=== PATIENT | male | born 1955 | race Caucasian/White ===

== ENCOUNTER 2022-10-03 07:03 | Inpatient (IN) | payer MEDICAID, MEDICARE ==
[2022-10-03] MEDS ORDERED: Propofol 200 MG/20 ML SDV ONE (07:08)
[2022-10-03] MEDS ORDERED: fentaNYL 50 MCG/ML SDV ONE (07:08)
[2022-10-03] MEDS ORDERED: Midazolam 1 MG/ML 2 ML SDV ONE (07:08)
[2022-10-03] MEDS ORDERED: Lactated Ringers 1,000 ML IV SCH (07:30)
[2022-10-03] MEDS ORDERED: Ondansetron 4 MG/2 ML SDV IVPUSH ONE (10:01)
[2022-10-03] MEDS ORDERED: Dicyclomine 10 MG Cap PO ONE (10:59)
[2022-10-03] MEDS ORDERED: Ketorolac 15 MG/ML SDV IVPUSH ONE ×2 (11:52)
[2022-10-03] MEDS ORDERED: Ondansetron 4 MG/2 ML SDV IV PRN (12:33)
[2022-10-03] MEDS ORDERED: Ketorolac 15 MG/ML SDV IVPUSH PRN (12:33)
[2022-10-03] MEDS ORDERED: Piperacillin/Tazobactam/Dext 3.375 GM in Premix Bag 1 BAG IV ONE (13:00)
[2022-10-03] MEDS ORDERED: Acetaminophen 1,000 MG in Premix Bag 1 BAG IV PRN (13:06)
[2022-10-03] MEDS: Dextrose 5%-0.45% NaCl 1,000 ML IV SCH ×3 (13:08→22:45)
[2022-10-03 15:30] LABS: CORONAVIRUS COVID-19 NAA NEGATIVE (NEGATIVE)
[2022-10-03] MEDS ORDERED: LORazepam 2 MG/ML SDV IVPUSH PRN (16:58)
[2022-10-03] MEDS ORDERED: HYDROmorphone 0.5 MG/0.5 ML Syringe IVPUSH PRN (16:58)
[2022-10-03] MEDS: Piperacillin/Tazobactam/Dext 3.375 GM in Premix Bag 1 BAG IV SCH (17:36)
[2022-10-04] MEDS: Piperacillin/Tazobactam/Dext 3.375 GM in Premix Bag 1 BAG IV SCH ×5 (00:38→23:36)
[2022-10-04 05:32] LABS: ESTIMATED GFR 94 mL/min (>60)
[2022-10-04] MEDS: Dextrose 5%-0.45% NaCl 1,000 ML IV SCH (08:08)
[2022-10-04] MEDS: Potassium Chloride 20 MEQ Tab.ER PO SCH ×3 (09:04→20:17)
[2022-10-04] MEDS ORDERED: Non-Formulary Medication 1 Each (Amlodipine Besylate [Norvasc] 10 MG Tablet) PO SCH (11:00)
[2022-10-04] MEDS: amLODIPine 5 MG Tab PO SCH (11:45)
[2022-10-04] MEDS: Lisinopril 10 MG Tab PO SCH (11:47)
[2022-10-05 04:59] LABS: ESTIMATED GFR 94 mL/min (>60)
[2022-10-05] MEDS: Piperacillin/Tazobactam/Dext 3.375 GM in Premix Bag 1 BAG IV SCH (05:12)
[2022-10-05] MEDS: Lisinopril 10 MG Tab PO SCH (07:59)
[2022-10-05] MEDS: amLODIPine 5 MG Tab PO SCH (07:59)
== END 2022-10-05 11:00 | disposition home or self-care (01) | DRG 919 ==
LOC: JP.SDS 07:03 → UNDOADMIN 12:33 → JP.MS 12:33
PROVIDERS: ADMIT Family Medicine; ATTEND Hospitalist
PROC: 0DBM8ZX Excision of Descending Colon, Via Natural or Artificial Opening Endoscopic, Diagnostic (ICD-10-PCS; principal; 2022-10-03)
PROC: 0DBL8ZX Excision of Transverse Colon, Via Natural or Artificial Opening Endoscopic, Diagnostic (ICD-10-PCS; 2022-10-03)
DX: K91.71 Accidental puncture and laceration of a digestive system organ or structure during a digestive system procedure (principal); K63.1 Perforation of intestine (nontraumatic); K52.1 Toxic gastroenteritis and colitis; I10 Essential (primary) hypertension; H91.90 Unspecified hearing loss, unspecified ear; N52.9 Male erectile dysfunction, unspecified; N40.0 Benign prostatic hyperplasia without lower urinary tract symptoms; K57.30 Diverticulosis of large intestine without perforation or abscess without bleeding; K63.5 Polyp of colon; E78.00 Pure hypercholesterolemia, unspecified; T36.95XA Adverse effect of unspecified systemic antibiotic, initial encounter; M19.90 Unspecified osteoarthritis, unspecified site; E66.9 Obesity, unspecified; Z79.82 Long term (current) use of aspirin; Z79.899 Other long term (current) drug therapy; Z91.030 Bee allergy status; Z98.890 Other specified postprocedural states; Z90.49 Acquired absence of other specified parts of digestive tract; Z68.33 Body mass index [BMI] 33.0-33.9, adult; Z87.891 Personal history of nicotine dependence
CPT/HCPCS: 0241U; 36415; 74176; 80053; 83735; 83880; 84100; 85025; 85027; 86140; 99222; 99232; 99238; 88305; A9270-GY; J1885; J2060; J2250; J2405; J2543; J2704; J3010; J7042; J7120

== ENCOUNTER 2023-02-14 06:29 | Day surgery (SDC) | payer MEDICARE ==
[2023-02-14] MEDS ORDERED: Bupivacaine 0.5% 30 ML SDV ONE (06:55)
[2023-02-14] MEDS ORDERED: Lactated Ringers 1,000 ML IV SCH (07:00)
[2023-02-14] MEDS ORDERED: Nozin Nasal Sanitizer NASBOTH ONE (07:00)
[2023-02-14] MEDS ORDERED: ceFAZolin 1 GM in Premix Bag 1 BAG IV ONE (07:00)
[2023-02-14 07:01] LABS: HEMOGLOBIN 16.2 g/dL (12.9-16.9); MEAN CORPUSCULAR HGB CONC 35.2 g/dL (31.6-35.5); MEAN CORPUSCULAR VOLUME 96.4 fL (81.4-99.0); RED BLOOD CELL COUNT 4.77 M/uL (4.14-5.76)
[2023-02-14] MEDS ORDERED: Ondansetron 4 MG/2 ML SDV ONE (07:05)
[2023-02-14] MEDS ORDERED: Dexamethasone 4 MG/ML SDV ONE (07:05)
[2023-02-14] MEDS ORDERED: Propofol 200 MG/20 ML SDV ONE (07:05)
[2023-02-14] MEDS ORDERED: fentaNYL 100 MCG/2 ML SDV ONE ×2 (07:05→08:47)
[2023-02-14] MEDS ORDERED: Midazolam 1 MG/ML 2 ML SDV ONE (07:05)
[2023-02-14 07:17] LABS: CALCIUM 8.4 mg/dL (8.5-10.1); CREATININE 0.9 mg/dL (0.8-1.3); EST CRCL DRUG DOSING (CG) 71.87 mL/min; POTASSIUM,K 3.8 mmol/L (3.6-5.2)
[2023-02-14 07:18] LABS: ANION GAP 11.8 mmol/L (5.0-14.0)
[2023-02-14] MEDS ORDERED: Ketorolac 30 MG/ML SDV ONE (08:47)
[2023-02-14] MEDS ORDERED: Acetaminophen/HYDROcodone 325-5 MG Tab PO ONE (10:22)
== END 2023-02-14 11:16 | disposition home or self-care (01) ==
LOC: JP.SDS 06:29
PROVIDERS: ATTEND Specialist
DX: M23.222 Derangement of posterior horn of medial meniscus due to old tear or injury, left knee (principal); M23.242 Derangement of anterior horn of lateral meniscus due to old tear or injury, left knee; M65.88 Other synovitis and tenosynovitis, other site; M94.262 Chondromalacia, left knee; I10 Essential (primary) hypertension; F17.200 Nicotine dependence, unspecified, uncomplicated; Z87.19 Personal history of other diseases of the digestive system; E66.9 Obesity, unspecified; Z68.32 Body mass index [BMI] 32.0-32.9, adult
CPT/HCPCS: 29880; 36415; 80048; 85027; A9270; J0690; J1100; J1885; J2250; J2405; J2704; J3010; J3490; J7120